=== PATIENT | male | born 1955 | race Caucasian/White ===

== ENCOUNTER → 2021-02-07 09:21 | Outpatient (CLI) | payer OTHER, SELFPAY ==
[2021-02-07 10:34] LABS: COVID19 -Nasal RAPID Negative (Negative)
== END ==
PROVIDERS: Family Provider Family Medicine; PCP Family Medicine; Visit Provider Surgery
DX: Z20.822 Contact with and (suspected) exposure to COVID-19 (principal)
CPT/HCPCS: 87635; C9803

== ENCOUNTER 2021-02-08 13:22 | Day surgery (SDC) | payer OTHER, SELFPAY ==
[2021-02-08 13:58] VITALS: BP 154/81; PULSE 72; RESP 16; TEMP 36.6; O2SAT 98; BMI 29.7
[2021-02-08] MEDS: SODIUM CHLORIDE 0.9% 1,000 ML 200 ML IV (14:07)
--- NOTE | 2021-02-08 14:29 | PM.HP.1 ---
History of Present Illness History of Present Illness Date Patient Seen: 02/08/21 Time Patient Seen: 14:29 Chief complaint: SDC Narrative: This is a 65-year-old man with history of gastric bypass multiple hernia surgeries, multiple colonoscopies, with advanced colon polyps. His last colonoscopy was 3 years ago, and multiple polyps were removed during that procedure. Since then he has not had any new symptoms such as melena, hematochezia, unexplained abdominal pain, or unexplained weight loss. Past medical history arthritis, GERD, migraines Past surgical history: bariatric surgery, shoulder surgery, inguinal hernia surgery x2, colonoscopy x5 Medications: Omeprazole, B12, Tylenol Social history denies tobacco, drinks occasional Allergies: This is his the to NSAIDs because of gastric bypass Family history: Secondary relatives with colon cancer ROS: Positive for reflux symptoms, headaches, arthritis. Thirteen system review is otherwise negative other than as mentioned below and in HPI. PE: GENERAL: Well groomed and cooperative. Appears stated age. Answers questions promptly and appropriately. Vital signs noted. HENT: Normocephalic, atraumatic. Hearing intact. EYES: Conjunctiva pink, sclera white, no periorbital swelling. CARDIOVASCULAR: Regular rate. No pedal edema. RESPIRATORY: Non-tachypneic, breathing comfortably on room air. GASTROINTESTINAL: Abdomen soft and non-distended GENITALURINARY: No flank tenderness. MUSCULOSKELETAL: Equal tone and mass bilaterally. SKIN: Warm, dry, soft, appropriate color for ethnicity. No other lesions, rashes, or wounds. NEURO: Alert and Oriented X 3. No gross sensory deficits, or cognitive issues. PSYCH: Appropriate affect and mood. Patient History Family & Social History Social History: household members spouse Tobacco & Substance use: Smoking Status Never smoker alcohol intake current alcohol intake frequency holiday/special occasion Substance Use Type does not use Meds Home Medications and Allergies Home Medications Medication Instructions Recorded Confirmed Type sodium,potassium,mag sulfates 17.5 177 ml PO DAILY #354 ml 01/19/21 Rx gram-3.13 gram-1.6 gram oral soln omeprazole 20 mg PO DAILY 02/08/21 02/08/21 History Allergies Allergy/AdvReac Type Severity Reaction Status Date / Time NSAIDS (Non-Steroidal Allergy Unknown UNK Verified 02/08/21 13:41 Anti-Inflamma [NSAIDS (NON-STEROIDAL ANTI-INFLAMMA] Exam Vital Signs (past 8 hours): - 05/25/21 13:58 Temperature 97.9 F Pulse Rate 72 Respiratory Rate 16 Blood Pressure 154/81 H Pulse Oximetry 98 Oxygen Delivery Method Room Air Assessment & Plan Assessment and plan (1) Personal history of colonic polyps: Status: Acute Assessment & Plan narrative: Risks and benefits of screening colonoscopy and possible polypectomy were discussed with the patient including risk of bleeding, perforation, need for additional procedures, risks of anesthesia. The patient desires to proceed with the colonoscopy procedure. COVID-19 COVID-19 status: Negative Result date/Date tested (Pos, Neg/Pending): 02/07/21 Time Spent With Patient Time with patient: 15-24 minutes Quality VTE Deep Vein Thrombosis/Pulmonary Embolism Present on Admission: No
[2021-02-08] MEDS: MIDAZOLAM 5 MG/5 ML VIAL IV (14:31)
[2021-02-08] MEDS: fentaNYL 250 MCG/5 ML INJ IV (14:31)
--- NOTE | 2021-02-08 14:33 | P.OP.ENDO_ITS ---
Operative Date/Time/Diagnoses Date of procedure: 02/08/21 Time of procedure: 14:33 Pre-op diagnosis: Personal history colon polyps, due for surveillance colonoscopy Post-op diagnosis: other (No polyps on today's exam. Tattooed area in the rectum showed no signs of regrowth.) Procedure & Clinicians Study performed: Colonoscopy Procedural sedation performed by the endoscopist Same procedure as scheduled: Yes Indications: Personal history of many advanced colon polyps, due for surveillance colonoscopy Surgeon: Perla Luque Procedure Notes SCOAP/Timeout: Performed Procedure in detail: The patient was brought to the room and placed in left lateral decubitus position with all bony prominences padded. A time-out was performed and then the patient was given procedural sedation starting with 4 mg of Versed and 100 mcg of fentanyl. Vitals were monitored throughout the procedure and remained stable. Once adequately sedated, the procedure was begun. A rectal exam was performed revealing no abnormalities. The colonoscope was then introduced to the rectum and advanced to the cecum in the usual fashion. The cecum was identified by the appendiceal orifice, the mucosal tri- fold, and the ileocecal valve. The scope was then retracted while rotating side to side and examining each mucosal fold. Low-grade diverticulosis seen in the sigmoid colon. No signs of diverticulitis. At the conclusion of the procedure small grade 1-2 internal hemorrhoids without stigmata of bleeding were seen. The scope was then withdrawn from the rectum the procedure was concluded. The patient tolerated the procedure well and was transferred to the PACU in stable condition. Scope withdrawal time: 7 Sedation minutes: 11 Findings: diverticulosis Specimen(s): none sent Complications: none Post-procedure Recommendations: Colonscopy in 3 years Follow up: as needed Disposition: PACU
[2021-02-08 14:51] VITALS: BP 121/72; PULSE 69; RESP 14; TEMP 36.3; O2SAT 96
[2021-02-08 14:56] VITALS: BP 129/83; PULSE 79; RESP 16; O2SAT 96
[2021-02-08 15:01] VITALS: BP 117/73; PULSE 73; RESP 12; TEMP 36.8; O2SAT 97
[2021-02-08 15:15] VITALS: BP 114/75; PULSE 73; RESP 16; TEMP 37.1; O2SAT 99
--- NOTE | 2021-02-08 15:37 | SUR.PHASEII ---
Pt ready to go, called, pt had soft belly tolerated fluids, left when ready left in stable condition.
== END 2021-02-08 15:20 | disposition home or self-care (01) ==
PROVIDERS: Family Provider Family Medicine; PCP Family Medicine; Referring Provider Surgery; Visit Provider Surgery
PROC: 0DJD8ZZ Inspection of Lower Intestinal Tract, Via Natural or Artificial Opening Endoscopic (ICD-10-PCS; CPT 45378; principal; 2021-02-08 14:30)
DX: Z12.11 Encounter for screening for malignant neoplasm of colon (principal); Z86.010 Personal history of colon polyps; K57.30 Diverticulosis of large intestine without perforation or abscess without bleeding; K64.0 First degree hemorrhoids
CPT/HCPCS: 45378; 99152; J2250; J3010